=== PATIENT | male | born 1965 | race Caucasian/White ===

== ENCOUNTER 2022-02-12 06:11 | Emergency (ER) | payer MEDICAID ==
[~2022-02-12] VITALS: Ht 180.3 cm; Wt 68.0 kg
[2022-02-12 06:23] VITALS: BP_SYST 145
[2022-02-12] MEDS ORDERED: FAMOTIDINE 20 MG TABLET PO ONE (06:30)
[2022-02-12] MEDS ORDERED: ACETAMINOPHEN 325 MG TABLET PO ONE (06:30)
[2022-02-12] MEDS ORDERED: MAG-AL HYDROX/SIMETH 30 ML UDC PO ONE (06:30)
[2022-02-12 07:39] LABS: ANION GAP 10 (5-15); CALCIUM 8.1 mg/dL (8.4-11.0); CHLORIDE 98 mmol/L (98-107); CREATININE 1.01 mg/dL (0.55-1.30); GLUCOSE 104 mg/dL (70-99); POTASSIUM 3.4 mmol/L (3.5-5.1); SODIUM SERUM 132 mmol/L (136-145); UREA NITROGEN, BLOOD 24 mg/dL (8-21)
[2022-02-12 07:47] LABS: ALANINE AMINOTRANSFERASE 26 U/L (12-78); ALBUMIN 3.4 g/dL (3.4-4.8); ASPARTATE AMINOTRANSFERASE 40 U/L (10-37); GFR AFRICAN AMERICAN 97 mL/min (>90); TOTAL BILIRUBIN 0.4 mg/dL (0.0-1.0)
[2022-02-12] MEDS ORDERED: ASPIRIN 325 MG TABLET PO ONE (08:00)
[2022-02-12 08:01] LABS: HEMATOCRIT 29.3 % (36-54); HEMOGLOBIN 9.4 g/dL (14.0-18.0); MEAN CORPUSCULAR HEMOGLOBIN 23 pg (27-31); MEAN CORPUSCULAR HGB CONC 32 % (32-36); MEAN CORPUSCULAR VOLUME 71 fL (79.0-98.0); PLATELET COUNT (AUTO) 305 K/uL (130-430); RED BLOOD CELL COUNT(AUTO) 4.12 MIL/uL (4.2-6.2); RED CELL DISTRIBUTION WIDTH 20.5 % (9.0-15.0); WHITE BLOOD COUNT (AUTO) 4.9 K/uL (4.8-10.8)
[2022-02-12 08:47] LABS: BASOPHILS % (MANUAL) 0 % (0-2); EOSINOPHILS % (MANUAL) 0 % (0-7); LYMPHOCYTES % (MANUAL) 18 % (20-46); MONOCYTES % (MANUAL) 11 % (0-11)
[2022-02-12] MEDS ORDERED: FLUT16SP16 NS (12:03)
[2022-02-12] MEDS ORDERED: LANS30CA53 PO (12:04)
[2022-02-12 12:17] VITALS: BP_SYST 134
== END 2022-02-12 12:19 | disposition left against medical advice (07) ==
LOC: SED 06:11
DX: I21.4 Non-ST elevation (NSTEMI) myocardial infarction (principal); F17.200 Nicotine dependence, unspecified, uncomplicated; Z88.6 Allergy status to analgesic agent; Z20.822 Contact with and (suspected) exposure to COVID-19
CPT/HCPCS: 36415; 71045; 80053; 84484; 85007; 85027; 93005; 99285